=== PATIENT | male | born 1985 | race Caucasian/White ===

== ENCOUNTER 2017-01-01 19:24 | Emergency (ER) | payer SELFPAY ==
[~2017-01-01] VITALS: Ht 188 cm; Wt 111.9 kg
[~2017-01-01 19:24] MED LIST: BACTRIM DS1 TAB PO; CEPHALEXIN500 MG PO; FLEXERIL5 M1 PO; LORTAB 10-325 M1 TAB PO; ULTRAM50 M1 PO; ULTRAM50 MG PO; ZITHROMAX250 MG PO
[2017-01-01 20:33] LABS: URINE BILIRUBIN - DIPSTICK NEGATIVE (NEGATIVE); URINE BLOOD DIPSTICK NEGATIVE (NEGATIVE); URINE CLARITY CLEAR; URINE COLOR YELLOW; URINE GLUCOSE - DIPSTICK NEGATIVE (NEGATIVE); URINE KETONE NEGATIVE (NEGATIVE); URINE LEUK ESTERASE NEGATIVE (NEGATIVE); URINE NITRITE - DIPSTICK NEGATIVE (Negative); URINE PROTEIN - DIPSTICK NEGATIVE (NEG-TRACE); URINE UROBILINOGEN - DIPSTICK 0.2 E.U./dL (0.2)
[2017-01-01 20:35] LABS: BARBITURATES NEGATIVE (NEGATIVE); COCAINE NEGATIVE (NEGATIVE); METHADONE NEGATIVE (NEGATIVE); OXCYCODONE NEGATIVE (NEGATIVE); TETRAHYDROCANNABIONOL NEGATIVE (NEGATIVE); TRICYLIC ANTIDEPRESSANTS NEGATIVE (NEGATIVE)
[2017-01-01 20:41] LABS: HEMATOCRIT 43.9 % (39.0-50.0); HEMOGLOBIN 15.1 g/dl (14.0-18.0); IMMATURE GRANULOCYTES 0.5 % (0.0-1.0); MEAN CORPUSCULAR HGB 31.7 pG CALC (26.0-32.0); MEAN CORPUSCULAR HGB CONC 34.4 g/L CALC (32.0-36.0); NEUT# 9.53 thou/uL (1.82-7.42); RED BLOOD COUNT 4.77 mill/uL (4.70-6.10); RED CELL DISTRI WIDTH 12.6 % (11.5-15.5)
[2017-01-01 20:56] LABS: ALBUMIN 4.5 g/dL (3.2-5.0); ALKALINE PHOSPHATASE 109 u/l (38-126); ANION GAP 14 (6-22 (CALC)); BILIRUBIN, TOTAL 0.3 mg/dL (0.0-1.4); BUN 12 mg/dL (9-20); BUN/CREATININE RATIO 15 (12-20 (CALC)); CALCIUM 10.1 mg/dL (8.4-10.2); CARBON DIOXIDE 32 mmol/l (22-30); CHLORIDE 102 mmol/l (95-108); CREATININE 0.8 mg/dL (0.7-1.3); GFR > 60 ML/MIN (>=60 (CALC)); GFR FOR AFR.AMER. > 60 ML/MIN (>=60 (CALC)); GLUCOSE 78 mg/dL (75-110); POTASSIUM 4.4 mmol/l (3.5-5.1); SGOT/AST 17 u/l (17-59); SGPT/ALT 28 u/l (21-72); SODIUM 143 mmol/l (137-146); TOTAL PROTEIN 7.3 g/dL (6.3-8.2)
[2017-01-01] MEDS ORDERED: FLOXIN OTIC0.3 % OT (21:44)
[2017-01-01] MEDS ORDERED: ULTRAM50 M1 PO (21:44)
[2017-01-01] MEDS ORDERED: CIPROFLOXACN500 MG PO (21:44)
[2017-01-01 22:03] VITALS: BP 139/66
[2017-01-01] MEDS ORDERED: FLONASE AL50 MCG/ACT (23:15)
== END 2017-01-01 21:41 | disposition home or self-care (01) | DRG 153 ==
LOC: ED 19:24
PROVIDERS: Emergency Medicine
DX: H66.93 Otitis media, unspecified, bilateral (principal); H70.90 Unspecified mastoiditis, unspecified ear; J32.9 Chronic sinusitis, unspecified

== ENCOUNTER 2017-03-04 19:45 | Emergency (ER) | payer OTHER ==
[~2017-03-04] VITALS: Ht 188 cm; Wt 109.0 kg
[~2017-03-04 19:45] MED LIST changes: +CIPROFLOXACN500 MG PO; +FLONASE AL50 MCG/ACT; +FLOXIN OTIC0.3 % OT
[2017-03-04] MEDS ORDERED: CIPROFLOXACN500 MG PO (20:32)
[2017-03-04] MEDS ORDERED: FLOXIN OTIC0.3 % AD (20:32)
[2017-03-04] MEDS ORDERED: LORTAB 10-325 M1 TAB PO (20:33)
[2017-03-04 20:40] VITALS: BP 141/86
== END 2017-03-04 20:40 | disposition home or self-care (01) | DRG 153 ==
LOC: ED 19:45
DX: H66.91 Otitis media, unspecified, right ear (principal); H92.01 Otalgia, right ear

== ENCOUNTER 2017-06-01 11:40 | Emergency (ER) | payer OTHER ==
[~2017-06-01 11:40] MED LIST changes: +FLOXIN OTIC0.3 % AD
== END 2017-06-01 12:00 | disposition left against medical advice (07) | DRG 951 ==
LOC: ED 11:40 → LWOBS 12:00
DX: Z91.19 Patient's noncompliance with other medical treatment and regimen (principal)

== ENCOUNTER 2021-10-07 16:41 | Emergency (ER) | payer OTHER ==
[~2021-10-07] VITALS: Ht 188 cm; Wt 123.0 kg
[2021-10-07] MEDS ORDERED: HYDROCO/APAP1 TA9 PO (16:58)
[2021-10-07] MEDS ORDERED: CLEOCIN300 MG PO (16:58)
[2021-10-07 17:07] VITALS: BP 167/98
== END 2021-10-07 17:25 | disposition home or self-care (01) ==
LOC: ED 16:41
DX: K04.7 Periapical abscess without sinus (principal); K02.9 Dental caries, unspecified; I10 Essential (primary) hypertension; F17.200 Nicotine dependence, unspecified, uncomplicated

== ENCOUNTER 2022-09-16 11:16 | Emergency (ER) | payer OTHER ==
[~2022-09-16] VITALS: Ht 188 cm; Wt 136.0 kg
[~2022-09-16 11:16] MED LIST changes: +CLEOCIN300 MG PO; +HYDROCO/APAP1 TA9 PO
[2022-09-16 11:40] VITALS: BP 219/130
[2022-09-16] MEDS ORDERED: CLINDAMYCIN300 M1 PO (12:53)
[2022-09-16 13:22] VITALS: BP 219/130
== END 2022-09-16 13:30 | disposition home or self-care (01) ==
LOC: ED 11:16
DX: K03.81 Cracked tooth (principal); I10 Essential (primary) hypertension; F17.200 Nicotine dependence, unspecified, uncomplicated